=== PATIENT | female | born 1965 | race Caucasian/White ===

== ENCOUNTER 2017-08-04 09:00 | Emergency (ER) | payer OTHER ==
--- NOTE | 2017-08-04 09:11 | PDOC ---
History of Present Illness - General Chief Complaint: Pain Stated Complaint: ABD PAIN, DIZZINESS Time Seen by Provider: 08/04/17 09:11 - History of Present Illness Initial Comments: 08/04/17 09:14 Ms. Aleman is a 51 yo female w/ pmh of unrepaired hiatal hernia (Reports stopped troubling her approximately 20 years ago) and GERD who presents with a 1 day history of increasing epigastric pain. She reports that it started yesterday evening and has been increasing until today, prompting her visit. She further reports recent dizziness and fatigue over the last 2 months and believes it may be due to increased stress she is under with a new granddaughter. The patient denies chest pain, shortness of breath, and headache. Denies fever, chills, nausea, vomit, diarrhea and constipation. Denies dysuria, frequency, urgency and hematuria. Allergies: NKDA Past History - Past Medical History Allergies/Adverse Reactions: Allergies Allergy/AdvReac Type Severity Reaction Status Date / Time No Known Allergies Allergy Verified 08/04/17 09:09 Home Medications: Ambulatory Orders NK [No Known Home Medication] 08/04/17 Review of Systems - Review of Systems Comments:: 08/04/17 09:14 GENERAL/CONSTITUTIONAL: +Intermittent fatigue and dizziness over the past 2 months without relation to activity or food intake. No fever or chills. No weakness. HEAD, EYES, EARS, NOSE AND THROAT: No change in vision. No ear pain or discharge. No sore throat. CARDIOVASCULAR: No chest pain or shortness of breath RESPIRATORY: No cough, wheezing, or hemoptysis. GASTROINTESTINAL: +Abdominal pain localized to epigastrum. No nausea, vomiting, diarrhea or constipation. GENITOURINARY: No dysuria, frequency, or change in urination. MUSCULOSKELETAL: No joint or muscle swelling or pain. No neck or back pain. SKIN: No rash NEUROLOGIC: No headache, vertigo, loss of consciousness, or change in strength/ sensation. ENDOCRINE: No increased thirst. No abnormal weight change HEMATOLOGIC/LYMPHATIC: No anemia, easy bleeding, or history of blood clots. ALLERGIC/IMMUNOLOGIC: No hives or skin allergy. *Physical Exam - Physical Exam Comments: 08/04/17 09:14 GENERAL: Awake, alert, and fully oriented, in no acute distress HEAD: No signs of trauma, normocephalic, atraumatic EYES: PERRLA, EOMI, sclera anicteric, conjunctiva clear ENT: Auricles normal inspection, hearing grossly normal, nares patent, oropharynx clear without exudates. Moist mucosa NECK: Normal ROM, supple, no lymphadenopathy, JVD, or masses LUNGS: No distress, speaks full sentences, clear to auscultation bilaterally HEART: Regular rate and rhythm, normal S1 and S2, no murmurs, rubs or gallops, peripheral pulses normal and equal bilaterally. ABDOMEN: +Vague abdominal tenderness, patient localizes TTP at LUQ radiating to LLQ. Soft, normoactive bowel sounds. No guarding, no rebound. No masses EXTREMITIES: Normal inspection, Normal range of motion, no edema. No clubbing or cyanosis. NEUROLOGICAL: Cranial nerves II through XII grossly intact. Normal speech, normal gait, no focal sensorimotor deficits SKIN: Warm, Dry, normal turgor, no rashes or lesions noted. ED Treatment Course - LABORATORY CBC & Chemistry Diagram: 08/04/17 09:45 08/04/17 09:45 Medical Decision Making - Medical Decision Making 08/04/17 10:12 Ms. Aleman is a 51 yo female w/ pmh as described who presents for evaluation of abdominal pain. Pepcid/IV fluids/tylenol given for pain control. Abdominal CT sent for further evaluation of pain. 08/04/17 10:13 Patient reporting some alleviation of symptoms with above treatment. 08/04/17 12:22 Patient unable to tolerate CT, Flat/Upright x-ray ordered. 08/04/17 13:02 XR non-concerning. Labs grossly wnl. Patient reporting relief from symptoms. Will f/u with PCP for further evaluation. Providing GI and Neuro referrals for dizziness and gastritis symptoms. No concern for acute process at this time. Discharging to home. *DC/Admit/Observation/Transfer Diagnosis at time of Disposition: Gastritis Qualifiers: Gastritis type: unspecified gastritis Chronicity: unspecified Gastritis bleeding: presence of bleeding unspecified Qualified Code(s): K29.70 - Gastritis , unspecified, without bleeding - Discharge Dispostion Disposition: HOME Condition at time of disposition: Stable - Referrals Referrals: Jak Gan MD [Staff Physician] - Cosmo Cabrera MD [Staff Physician] - - Patient Instructions Printed Discharge Instructions: DI for Gastritis Additional Instructions: Please follow-up with provided specialists as needed for further evaluation. Return to ER if any return of pain, nausea, vomiting, fever, chills, or other concerning symptoms. - Post Discharge Activity
--- NOTE | 2017-08-04 09:14 | PDOC ---
Attending Attestation - Resident Resident Name: Abrahan Hernandez - ED Attending Attestation I have performed the following: I have examined & evaluated the patient, The case was reviewed & discussed with the resident, I agree w/resident's findings & plan, Exceptions are as noted - HPI HPI: 08/04/17 10:03 Ms Aleman is a 51 yo F who presents to the ER with a complaint of epigastric pain Symptoms began yesterday, were severe and unbearable since last night No vomiting No fever, (+) chills No radiation of pain to the back No diarrhea No prior episodes like this - Physicial Exam PE: 08/04/17 10:04 GENERAL: The patient is in no acute distress. LUNGS: Breath sounds equal, clear to auscultation bilaterally. No wheezes, and no crackles. HEART:Regular rate and rhythm, normal S1 and S2 without murmur, rub or gallop. ABDOMEN: Soft, epigastric, ruq tenderness to palpation, no guarding, no rebound EXTREMITIES: Normal range of motion NEUROLOGICAL: Cranial nerves II through XII grossly intact. Normal speech. No focal neurological deficits. - Medical Decision Making 08/04/17 10:05 51 yo F presenting to the ER with a compaint of epigastric pain DD: Gastritis, Ulcer, Biliary Colic, colitis, SBO Will do: Labs CT ?US Re assess 08/04/17 10:31 EKG: SR, rate of 73 bpm, axis nml intervals nml, no st elevations or depressions , t waves upright Laboratory Tests 08/04/17 08/04/17 08/04/17 09:45 09:45 09:45 WBC 7.5 Hgb 14.3 Hct 42.3 Plt Count 371 Sodium 136 Potassium 3.9 Chloride 102 Carbon Dioxide 27 BUN 8 Creatinine < 0.8 Random Glucose 106 Total Bilirubin < 0.5 Creatine Kinase Troponin I < 0.03 08/04/17 09:45 WBC Hgb Hct Plt Count Sodium Potassium Chloride Carbon Dioxide BUN Creatinine Random Glucose Total Bilirubin Creatine Kinase 156 [address] 08/04/17 12:12 Lipase is still pending Pt had panic attack in [place] Will not go back even if given benzos Pt states that she feels better Will do flat and upright to r/o SBO, perforated viscus Pt can follow up with her PMD and GI doctor PT did not want to stay in the ER for Xray results or lipase She feels better Clinical Impression: gastritis, initial presentation
[2017-08-04 09:15] VITALS: TEMP 98.6; BMI 25.7
[2017-08-04] MEDS ORDERED: morphine CARPU-JECT 2 MG/1 ML DISP.SYRIN IVPUSH ONE (09:31)
[2017-08-04] MEDS ORDERED: FAMOTIDINE IV 20 MG/12 ML VIAL IVPB ONE (09:31)
[2017-08-04] MEDS ORDERED: SODIUM CHLORIDE 1,000 ML IV STA (09:31)
[2017-08-04] MEDS ORDERED: ACETAMINOPHEN 500 MG TABLET (FP) PO ONE (09:48)
[2017-08-04] MEDS ORDERED: FAMOTIDINE 20 MG/50 ML IVPB 20 MG/50 ML MG IVPB ONE (09:51)
[2017-08-04] MEDS ORDERED: ACETAMINOPHEN 500 MG TABLET (FP) ONE (09:52)
[2017-08-04 10:00] LABS: BASO % 1.4 % (0-2.0); EOS % 1.5 % (0-4.5); HEMATOCRIT 42.3 % (32.4-45.2); HEMOGLOBIN 14.3 GM/dl (10.7-15.3); LYMPH % 18.3 % (8-40); MCHC 33.7 g/dl (32.0-36.0); MEAN CELL VOLUME 86.2 fl (80-96); MEAN PLT VOLUME 6.9 fl (7.5-11.1); NEUT % 72.8 % (42.8-82.8); PLATELET COUNT 371 K/MM3 (134-434); RBC 4.91 M/mm3 (3.60-5.2); WHITE BLOOD COUNT 7.5 K/mm3 (4.0-10.8)
[2017-08-04 10:14] LABS: ALBUMIN 4.6 g/dl (3.5-5.0); ALK PHOS 57 U/L (32-92); ANION GAP 7 (8-16); BLOOD UREA NITROGEN 8 mg/dl (7-18); CHLORIDE 102 mmol/L (98-107); CO2 27 mmol/L (22-28); GLUCOSE,RANDOM 106 mg/dl (74-106); POTASSIUM 3.9 mmol/L (3.5-5.1); SGOT/AST 17 U/L (10-42); SGPT/ALT 14 U/L (10-40); SODIUM 136 mmol/L (136-145); TOT PROT 7.6 g/dl (6.4-8.3)
[2017-08-04 10:26] LABS: CREATININE < 0.8 mg/dl (0.6-1.3)
[2017-08-04 10:27] LABS: BILIRUBIN,TOTAL < 0.5 mg/dl (0.2-1.0)
[2017-08-04 10:39] LABS: URINE APPEARANCE Clear; URINE BILIRUBIN Negative (NEGATIVE); URINE GLUCOSE (UA) Negative (NEGATIVE); URINE KETONE Negative (NEGATIVE); URINE NITRITE Negative (NEGATIVE); URINE PROTEIN Negative (NEGATIVE); URINE UROBILINOGEN 0.2 (0.2-1.0)
[2017-08-04 10:44] LABS: URINE COLOR YELLOW; URINE LEUK ESTERASE TRACE (NEGATIVE)
[2017-08-04 11:22] LABS: EPI CELLS FEW /HPF; URINE BACTERIA NONE SEEN /hpf (NEGATIVE); URINE RBC 0-3 /hpf (0-3); URINE WBC 0-3 (0-5)
[2017-08-04 12:36] VITALS: BP 144/90; PULSE 85
[2017-08-04 13:56] LABS: LIPASE 75 U/L (73-393)
--- NOTE | 2017-08-05 15:37 | EKG ---
Test Reason : Blood Pressure : / mmHG Vent. Rate : 073 BPM Atrial Rate : 073 BPM P-R Int : 138 ms QRS Dur : 080 ms QT Int : 380 ms P-R-T Axes : 059 043 045 degrees QTc Int : 418 ms NORMAL SINUS RHYTHM WITH SINUS ARRHYTHMIA NORMAL ECG NO PREVIOUS ECGS AVAILABLE Confirmed by TRACY PINZON, EFREN ([id number]) on 08/05/2017 3:37:35 PM Referred By: DADA ELIZONDO Confirmed By:EFREN MOLINA MD
== END 2017-08-04 13:30 | disposition home or self-care (01) ==
LOC: FER 09:08
PROC: 3E033GC Introduction of Other Therapeutic Substance into Peripheral Vein, Percutaneous Approach (ICD-10-PCS; principal; 2017-08-04)
PROC: 3E0337Z Introduction of Electrolytic and Water Balance Substance into Peripheral Vein, Percutaneous Approach (ICD-10-PCS; 2017-08-04)
DX: K29.70 Gastritis, unspecified, without bleeding (principal)
CPT/HCPCS: 36415; 74019-TC-FY; 80053; 81003; 81015; 82550; 82553; 83690; 84484; 85025; 87086; 93005; 99285-25; J7030